=== PATIENT | male | born 1980 | race African-American/Black ===

== ENCOUNTER 2019-12-29 11:57 | Inpatient (IN) ==
[2019-12-29] MEDS ORDERED: HYDROmorphone 2 MG/1 ML VIAL IV STA ×2 (12:23→13:45)
[2019-12-29] MEDS ORDERED: GENTAMICIN INJ 160 MG in SODIUM CHLORIDE 0.9% 100 ML IV STA (12:23)
[2019-12-29] MEDS ORDERED: ONDANSETRON 4 MG/2 ML VIAL IV STA (12:23)
[2019-12-29] MEDS ORDERED: DIPH/TET/ACEL PERT BOOSTER VACCINE 0.5 ML VIAL IM ONE (12:24)
[2019-12-29] MEDS ORDERED: FAMOTIDINE 20 MG/2 ML VIAL IV STA (13:05)
[2019-12-29 13:11] LABS: Basophils % 0.3 % (0.0-0.8); Eosinophils % 0.1 % (0.00-10.9); Hematocrit 42.9 VOL% (42.0-52.0); Immature Granulocytes % 0.4 %; Immature Granulocytes Absolute 0.05 #; Lymphocytes # 1.3 10*3/uL (1.4-4.0); Lymphocytes % 9.1 % (21.2-54.2); Mean Corpuscular Volume 92.1 FL (87-102); Mean Platelet Volume 9.5 FL (9.6-12.0); Monocytes % 6.2 % (1.7-12.7); Neutrophils % 83.9 % (38.7-73.9); Platelet Count 163 T/CUMM (130-400); Red Blood Count 4.66 MC/CUMM (3.8-5.5); Red Cell Distribution Width 13.4 % (9.3-17.3)
[2019-12-29 13:32] LABS: PT Patient Result 10.3 SECS (9.8-11.9); Partial Thromboplastin Time 24.4 SECS (23.9-33.8)
[2019-12-29 13:36] LABS: Alanine Aminotransferase 28 U/L (16-61); Albumin 3.5 G/DL (3.4-5.0); Alkaline Phosphatase 75 U/L (45-117); Aspartate Amino Transferase 20 U/L (0-37); Bilirubin,Total < 0.39 MG/DL (0.2-1.0); Blood Urea Nitrogen 14 MG/DL (7-18); Calcium 8.6 MG/DL (8.5-10.1); Estimated Glom Filtration Rate 118 ML/MIN; Glucose 89 MG/DL (74-106); Osmolality,Calculated 269.1 MOS/KG (273-304); Total Protein 7.3 G/DL (6.4-8.3)
[2019-12-29] MEDS ORDERED: GENTAMICIN 80 MG/2 ML VIAL ONE (13:50)
[2019-12-29] MEDS ORDERED: KETOROLAC 15 MG/1 ML VIAL IV PRN (14:15)
[2019-12-29] MEDS ORDERED: ONDANSETRON 4 MG/2 ML VIAL IV PRN ×2 (14:15→15:44)
[2019-12-29] MEDS ORDERED: ALBUTEROL/IPRATROPIUM 3 ML NEB RESP TX PRN (14:15)
[2019-12-29] MEDS ORDERED: ACETAMINOPHEN 325 MG TABLET PO PRN (14:15)
[2019-12-29] MEDS ORDERED: BISACODYL 5 MG TABLET PO PRN (14:15)
[2019-12-29] MEDS ORDERED: hydrALAZINE 20 MG/1 ML VIAL IV PRN (14:18)
[2019-12-29] MEDS ORDERED: POTASSIUM CHLORIDE RIDER 10 MEQ in PREMIX 1 EACH IV PRN (14:27)
[2019-12-29] MEDS ORDERED: MEPERIDINE 25 MG/1 ML VIAL IV PRN (15:44)
[2019-12-29] MEDS ORDERED: PROMETHAZINE INJ 25 MG in SODIUM CHLORIDE 0.9% 50 ML IV PRN (15:44)
[2019-12-29] MEDS ORDERED: diphenhydrAMINE 50 MG/1 ML VIAL IV PRN (15:44)
[2019-12-29] MEDS ORDERED: LIDOCAINE 1%/EPI INJ 20 ML VIAL ONE (17:02)
[2019-12-29] MEDS: HYDROmorphone 2 MG/1 ML VIAL IV PRN (18:47)
[2019-12-29] MEDS: PIPERACILLIN/TAZOBACTAM 3,375 MG in SODIUM CHLORIDE 0.9% 100 ML IV SCH ×2 (19:34→23:20)
[2019-12-29] MEDS ORDERED: LIDOCAINE 2% 5 ML VIAL ONE (21:06)
[2019-12-29] MEDS ORDERED: fentaNYL 100 MCG/2 ML VIAL ONE (21:06)
[2019-12-29] MEDS ORDERED: propofoL 200 MG/20 ML VIAL IV ONE (21:06)
[2019-12-29] MEDS ORDERED: ONDANSETRON 4 MG/2 ML VIAL ONE (21:06)
[2019-12-29] MEDS ORDERED: DEXAMETHASONE 4 MG/1 ML VIAL ONE (21:06)
[2019-12-29] MEDS ORDERED: SEVOFLURANE 1 UNIT/15 MINUTE INH ONE (21:06)
[2019-12-29] MEDS ORDERED: MIDAZOLAM 2 MG/2 ML VIAL ONE (21:06)
[2019-12-29] MEDS ORDERED: ROCURONIUM 100 MG/10 ML VIAL IV ONE (21:07)
[2019-12-29] MEDS ORDERED: KETOROLAC 30 MG/1 ML VIAL ONE (21:07)
[2019-12-29] MEDS ORDERED: LACTATED RINGERS 1,000 ML IV ONE (21:07)
[2019-12-29] MEDS ORDERED: SUCCINYLCHOLINE 200 MG/10 ML VIAL ONE (21:07)
[2019-12-30] MEDS: HYDROmorphone 2 MG/1 ML VIAL IV PRN ×3 (00:43→12:30)
[2019-12-30 06:11] LABS: Basophils % 0.2 % (0.0-0.8); Hematocrit 40.2 VOL% (42.0-52.0); Hemoglobin 13.9 GM/DL (14.0-18.0); Immature Granulocytes % 0.4 %; Immature Granulocytes Absolute 0.06 #; Lymphocytes # 0.7 10*3/uL (1.4-4.0); Lymphocytes % 5.1 % (21.2-54.2); Mean Corpuscular HGB Conc 34.6 GM/DL (32-36); Mean Corpuscular Volume 92.4 FL (87-102); Monocytes % 3.6 % (1.7-12.7); Neutrophils % 90.7 % (38.7-73.9); Platelet Count 169 T/CUMM (130-400); Red Blood Count 4.35 MC/CUMM (3.8-5.5); Red Cell Distribution Width 13.3 % (9.3-17.3); White Blood Count 13.8 T/CUMM (4-12)
[2019-12-30 06:27] LABS: Calcium 8.6 MG/DL (8.5-10.1)
[2019-12-30] MEDS: PIPERACILLIN/TAZOBACTAM 3,375 MG in SODIUM CHLORIDE 0.9% 100 ML IV SCH ×3 (06:39→23:07)
[2019-12-30 07:49] LABS: Band Neutrophils 2 % (0-10); Lymphocytes 4 % (20-55); Platelet Estimate Normal; Segmented Neutrophils 90 % (50-85); Total Cells Counted 100
[2019-12-30] MEDS ORDERED: INFLUENZA VIRUS VACCINE 0.5 ML SYRINGE IM ONE (09:00)
[2019-12-30] MEDS: PANTOPRAZOLE 40 MG TABLET PO SCH (09:46)
[2019-12-31] MEDS: HYDROmorphone 2 MG/1 ML VIAL IV PRN ×5 (00:21→20:24)
[2019-12-31] MEDS: PIPERACILLIN/TAZOBACTAM 3,375 MG in SODIUM CHLORIDE 0.9% 100 ML IV SCH ×3 (06:37→23:35)
[2019-12-31] MEDS: PANTOPRAZOLE 40 MG TABLET PO SCH (07:59)
[2020-01-01] MEDS: PIPERACILLIN/TAZOBACTAM 3,375 MG in SODIUM CHLORIDE 0.9% 100 ML IV SCH ×3 (06:00→23:13)
[2020-01-01] MEDS: HYDROmorphone 2 MG/1 ML VIAL IV PRN ×3 (06:31→22:44)
[2020-01-01] MEDS: PANTOPRAZOLE 40 MG TABLET PO SCH (09:10)
[2020-01-02] MEDS: PIPERACILLIN/TAZOBACTAM 3,375 MG in SODIUM CHLORIDE 0.9% 100 ML IV SCH ×3 (06:31→23:12)
[2020-01-02] MEDS: PANTOPRAZOLE 40 MG TABLET PO SCH (09:22)
[2020-01-02] MEDS: HYDROmorphone 2 MG/1 ML VIAL IV PRN ×3 (09:43→23:12)
[2020-01-03] MEDS: PIPERACILLIN/TAZOBACTAM 3,375 MG in SODIUM CHLORIDE 0.9% 100 ML IV SCH ×3 (06:41→23:16)
[2020-01-03] MEDS: HYDROmorphone 2 MG/1 ML VIAL IV PRN ×4 (08:22→23:21)
[2020-01-03] MEDS: hydroCHLOROthiazide 25 MG TABLET PO SCH (09:12)
[2020-01-03] MEDS: PANTOPRAZOLE 40 MG TABLET PO SCH (09:13)
[2020-01-04] MEDS: HYDROmorphone 2 MG/1 ML VIAL IV PRN ×2 (03:34→11:37)
[2020-01-04] MEDS: PIPERACILLIN/TAZOBACTAM 3,375 MG in SODIUM CHLORIDE 0.9% 100 ML IV SCH (06:20)
[2020-01-04] MEDS: PANTOPRAZOLE 40 MG TABLET PO SCH (09:19)
[2020-01-04] MEDS: hydroCHLOROthiazide 25 MG TABLET PO SCH (09:19)
[2020-01-04 11:19] VITALS: BP 108/55
== END 2020-01-04 17:18 | disposition home health service (06) | DRG 571 ==
LOC: N.EDINP 11:57 → N.ED 11:57 → N.EDINP 17:00 → N.3E 17:18
PROVIDERS: ADMIT Surgery; ATTEND Surgery